=== PATIENT | male | born 1965 | race Caucasian/White ===

== ENCOUNTER → 2024-10-18 12:31 | Outpatient (REF) | payer BC, SELFPAY ==
[2024-10-18 13:25] LABS: % Basophils 0.4 % (0-2); % Eosinophils 0.6 % (0-6); % Immature Granulocytes 0.2 % (0-0.5); % Lymphocytes 10.2 % (20.5-51.1); % Neutrophils 71.6 % (42.2-75.2); Absolute Lymphocytes 0.5 10^3/uL (1.2-3.4); Absolute Monocytes 0.9 10^3/uL (0.1-0.6); Absolute Neutrophils 3.7 10^3/uL (1.4-6.5); Hematocrit 41.5 % (39.0-52.0); Hemoglobin 14.7 g/dL (13.0-18.0); Mean Corp Hgb Conc. 35.4 g/dL (33.0-37.0); Mean Corpuscular Hgb 31.1 pg (27.0-31.0); Mean Corpuscular Volume 87.9 fL (80.0-94.0); Mean Platelet Volume 10.8 fL (7.4-10.4); Nucleated Red Blood Cells % 0 % (-); Platelet Count 157 10^3/uL (130-400); Red Blood Cell Count 4.72 10^6/uL (4.70-6.10); Red Cell Dist. Width 13.1 % (11.5-14.5); White Blood Cell Count 5.2 10^3/uL (4.8-10.8)
[2024-10-18 13:38] LABS: ALT (SGPT) 49 U/L (0-50); AST (SGOT) 45 U/L (17-59); Albumin 4.9 g/dl (3.5-5.0); Alkaline Phosphatase 72 U/L (38-126); Blood Urea Nitrogen 12 mg/dl (9-20); Calcium 9.3 mg/dl (8.4-10.2); Carbon Dioxide 26 mmol/L (22-30); Chloride 100 mmol/L (98-107); Glucose 102 mg/dl (70-99); Potassium 4.2 mmol/L (3.5-5.1); Sodium 136 mmol/L (135-145); Total Bilirubin 1.6 mg/dl (0.2-1.3); Total Protein 7.8 g/dl (6.3-8.2); eGFR > 60.00
== END ==
LOC: RAD 12:31
PROVIDERS: ATTENDING PHYSICIAN Nurse Practitioner Family
DX: R50.9 Fever, unspecified (principal); R05.3 Chronic cough
CPT/HCPCS: 36415; 71046; 80053; 85025

== ENCOUNTER → 2024-10-19 06:17 | Outpatient (REF) | payer BC, SELFPAY ==
[2024-10-21 07:41] LABS: Quantiferon Mitogen minus NIL 9.89 IU/mL; Quantiferon NIL 0.11 IU/mL; Quantiferon Plus TB1 minus NIL 0.02 IU/mL (<=0.34); Quantiferon Plus TB2 minus NIL 0.01 IU/mL (<=0.34); Quantiferon TB Gold Plus Negative (Negative)
== END ==
LOC: REG 06:17
PROVIDERS: ATTENDING PHYSICIAN Nurse Practitioner Family
DX: R50.9 Fever, unspecified (principal); R05.3 Chronic cough
CPT/HCPCS: 36415; 86480

== ENCOUNTER 2025-09-04 05:49 | Day surgery (SDC) | payer BC, SELFPAY ==
[2025-08-24 09:25] LABS: ALT (SGPT) 37 U/L (0-50); AST (SGOT) 32 U/L (17-59); Albumin 4.9 g/dl (3.5-5.0); Alkaline Phosphatase 63 U/L (38-126); Blood Urea Nitrogen 15 mg/dl (9-20); Calcium 9.0 mg/dl (8.4-10.2); Carbon Dioxide 27 mmol/L (22-30); Chloride 105 mmol/L (98-107); Glucose 102 mg/dl (70-99); Potassium 4.4 mmol/L (3.5-5.1); Sodium 140 mmol/L (135-145); Total Protein 7.8 g/dl (6.3-8.2); eGFR > 60.00
[2025-08-24 13:35] VITALS: BMI 31.4
[2025-09-04] VITALS (7 sets, daily range): BP systolic 118–133; BP diastolic 73–83; BMI 31.4
[2025-09-04] MEDS: TYLENOL 1000 MG PO (06:29)
[2025-09-04] MEDS: CELEBREX 200 MG PO (06:29)
[2025-09-04] MEDS: NORMOSOL-R/PLASMALYTE-A 1000 IV (06:36)
== END 2025-09-04 10:32 | disposition home or self-care (01) ==
LOC: SDS 05:49
PROVIDERS: ATTENDING PHYSICIAN Orthopaedic Surgery; FAMILY PHYSICIAN Physician Assistant
DX: S46.011A Strain of muscle(s) and tendon(s) of the rotator cuff of right shoulder, initial encounter (principal); S46.211A Strain of muscle, fascia and tendon of other parts of biceps, right arm, initial encounter; X50.0XXA Overexertion from strenuous movement or load, initial encounter
CPT/HCPCS: 29827; 29828; 80053; C1713